=== PATIENT | male | born 1955 | race Caucasian/White ===

== ENCOUNTER → 2018-07-22 | Day surgery (SDC) | payer BC ==
[2018-07-21 11:23] LABS: BASOPHILS # (AUTO) 0.1 (0.0-0.1); EOSINOPHILS # (AUTO) 0.3 (0.0-0.4); EOSINOPHILS % 3.6 % (0.0-6.0); HEMATOCRIT 45.8 % (38.2-49.6); HEMOGLOBIN 15.8 g/dL (14.0-18.0); LYMPHOCYTES % 27.5 % (18.0-39.1); MEAN CORPUSCULAR HEMOGLOBIN 29.9 pg (28-32); MEAN CORPUSCULAR HGB CONC 34.5 g/dL (31-35); MEAN CORPUSCULAR VOLUME 86.6 fL (81-99); MONOCYTES # (AUTO) 0.7 (0.2-0.8); MONOCYTES % 10.1 % (4.4-11.3); NEUTROPHILS # (AUTO) 4.1 (2.1-6.9); NEUTROPHILS % 57.2 % (38.7-80.0); PLATELET COUNT 225 x10e3/uL (140-360); RED BLOOD COUNT 5.29 x10e6/uL (4.3-5.7); RED CELL DISTRIBUTION WIDTH 12.5 % (11.7-14.4)
[2018-07-21 11:35] LABS: INR 0.91; PROTHROMBIN TIME 13.1 seconds (11.9-14.5)
[2018-07-21 11:42] LABS: ALANINE AMINOTRANSFERASE 63 IU/L (0-55); ALBUMIN 4.1 g/dL (3.5-5.0); ALBUMIN/GLOBULIN RATIO 1.6 (0.8-2.0); ALKALINE PHOSPHATASE 61 IU/L (40-150); ANION GAP 13.2 mmol/L (8-16); BLOOD UREA NITROGEN 11 mg/dL (7-26); BUN/CREATININE RATIO 11 (6-25); CARBON DIOXIDE 25 mmol/L (22-29); CHLORIDE 104 mmol/L (98-107); EST GLOMERULAR FILTRATION RATE > 60 ML/MIN (60-); GLUCOSE 87 mg/dL (74-118); POTASSIUM 4.2 mmol/L (3.5-5.1); SODIUM 138 mmol/L (136-145)
[2018-07-22] VITALS (10 sets, daily range): BP systolic 129–160; BP diastolic 60–93
[~2018-07-22] VITALS: Ht 180.3 cm; Wt 124.3 kg
[~2018-07-22] MED LIST: ASPIR 8181 MG PO; BP MED; COQ-10100 MG PO; FENTANYL CITRATE/PF 100MCG/2 ML INJ ONE; GARLIC1 EAC1 PO; HEPARIN SOD (PORCINE) 1000 UNIT/ML 30ML ONE; HEPARIN SOD/SOD CHLORIDE 2,000 ML ONE; IOPAMIDOL 370 MG/ML 200 ML INFUS..BTL INJ ONE; LEVOTHYROXINE50 MCG PO; LEXAPRO10 MG PO; LIDOCAINE HCL 2% LOCAL 20 ML VIAL ONE; LORAZEPAM0.5 MG PO; METOPROLOL SUCC50 MG PO; MIDAZOLAM HCL 2 MG/2 ML VIAL ONE; MULTIVITAMINS1 EAC7 PO; NIFEDIPINE ER30 M1 PO; SODIUM CHLORIDE 0.9% 1000ML 1,000 ML ONE; VASOTEC10 M1 PO; VERAPAMIL HCL 2.5 MG/ML 2 ML VIAL ONE; VITAMIN D32000 UNIT PO
--- NOTE | 2018-07-22 15:57 | NUR ---
1555 Received pt from lab associate recovery nurse Elizabeth WEIR. [facility] no fix clear arteries DR Fang RT TR band approach and right MINX closure in place with both sites dry and intact. Back to baseline orientation PEERLA ,Family at bedside.Denies necessity to defecate or urinate. Left iv site w/o s/s infiltration. Dr Fang at talked to pt and family regarding plan of care. Copies of dc orders given NO questions or concerns. Tolerating po intake. Vs and EKG stable no co CP or SOB
--- NOTE | 2018-07-22 16:30 | NUR ---
1630 Tr band titration started ,radial pulse adequate, no bleeding -2cc positive 10cc left in balloon device 1700 Tr band titration started, radial pulse adequate, no bleeding -22cc, positive 8cc left in balloon device. Addendum: 07/22/18 at 1705 by Dalia Jerry RN 1700 correction -2cc positive 8cc in balloon No bleeding noted positive radial pulse
--- NOTE | 2018-07-22 17:30 | NUR ---
1730pm TR band completion done site w/o bruising 2x2 gauze and tegaderm with coban and splint applied. No hematoma or bleeding. Good radial pulse.Iv removed site w/o s/s infiltration. 2x2 with gauze dressing. Coban dressing. Dressed and assisted to car per w/c, with as recycler forklift driver truck driver. Family has dc papers.Denies CP or SOB Aware to followup with MD recheck appointment. VS and Ekg stable.
--- NOTE | 2018-07-22 23:15 | Operative Report ---
DATE OF PROCEDURE: July 22, 2018 CARDIAC CATHETERIZATION REPORT PROCEDURES 1. Selective coronary angiography. 2. Left heart catheterization. 3. Aortogram. 4. Left external iliac angiogram. INDICATIONS: Abnormal nuclear stress test. SEDATION 1. Midazolam 6 mg. 2. Fentanyl 150 mcg. CONSENT: Informed consent was obtained and documented in the chart. PROCEDURE IN DETAIL: The patient was brought to the cardiac catheterization laboratory in a fasting state after written informed consent was obtained. Bilateral groins and right wrist were prepped and draped in the usual sterile fashion. Lidocaine 1% was infiltrated over the right radial artery to achieve local anesthesia. The right radial artery was accessed with micropuncture needle and a 5-Albanian long sheath was inserted via modified Seldinger technique. A 5-Albanian TIG was inserted and advanced into the right subclavian artery, but could not be advanced into the ascending aorta due to vessel tortuosity. The TIG catheter was removed and attention was turned to the right groin. Lidocaine 1% was infiltrated over the right common femoral artery to achieve local anesthesia. The right common femoral artery was accessed with a micropuncture needle under ultrasound guidance. A 5-Albanian sheath was inserted via modified Seldinger technique. A 5-Albanian JL4 was inserted and advanced into the ascending aorta. The left main coronary artery was cannulated under fluoroscopic guidance. Selective coronary angiography was performed. The JL4 was removed and a 5-Albanian 3DRC was inserted and advanced into the ascending aorta. The right coronary artery was cannulated under fluoroscopic guidance. Selective coronary angiography was performed. The 3DRC was removed and a 5-Albanian pigtail was inserted and advanced into the ascending aorta and then the left ventricle. Hemodynamic measurements were obtained. The pigtail was then withdrawn into the ascending aorta and an aortogram was performed to evaluate the right subclavian artery. The pigtail was removed and angiogram was performed of the right external iliac artery through the 5-Albanian sheath. The 5-Albanian sheath was removed and Mynx closure device was used to achieve hemostasis. The 5-Albanian radial sheath was removed and TR band was placed. The patient tolerated the procedure well with no immediate complications. FINDINGS 1. The left main coronary trifurcates into the left anterior descending, ramus and circumflex arteries. The left anterior descending artery is a large vessel that wraps around the apex and gives rise to a large first diagonal. There was no angiographic evidence of disease. The ramus is a small-caliber vessel without evidence of disease. The circumflex is a medium caliber vessel which gives rise to 2 OMs. 2. The right coronary artery is a large-caliber vessel that supples to PDA. There was no angiographic evidence of disease. 3. LVEDP 10 mmHg. 4. The right subclavian artery is patent but tortuous. CONCLUSION: No coronary artery disease. IMPRESSION: Medical therapy and risk factor modification. Job#: [id number] GE
== END | disposition home or self-care (01) ==
LOC: CATH LAB 11:03
PROVIDERS: ATTEND Internal Medicine
DX: I25.10 Atherosclerotic heart disease of native coronary artery without angina pectoris (principal); R94.39 Abnormal result of other cardiovascular function study; I10 Essential (primary) hypertension; I47.1 Supraventricular tachycardia; Z01.812 Encounter for preprocedural laboratory examination; Z79.82 Long term (current) use of aspirin
CPT/HCPCS: 36415; 75605; 80053; 85025; 85610; 93458; C1769 ×2; C1887; J1644; J2001; J2250; J7030; Q9967